=== PATIENT | female | born 1975 | race Caucasian/White ===

== ENCOUNTER 2016-11-14 23:07 | Emergency (ER) | payer MEDICARE | END 2016-11-15 00:41 | disposition home or self-care (01) | LOC: ED 23:07 | DX: S00.83XA Contusion of other part of head, initial encounter (principal); Y04.0XXA Assault by unarmed brawl or fight, initial encounter; T74.11XA Adult physical abuse, confirmed, initial encounter; J32.0 Chronic maxillary sinusitis | CPT/HCPCS: J1885 ==

== ENCOUNTER 2021-10-11 14:20 | Emergency (ER) | payer MEDICARE ==
[~2021-10-11] VITALS: Ht 160 cm; Wt 69.5 kg
[2021-10-11 14:52] LABS: BASO # 0.01 K/mm3 (0.02-0.10); EOS % 4.1 % (1.0-5.0); HEMATOCRIT 42.8 % (37.0-47.0); HEMOGLOBIN 14.5 g/dL (12.5-16.0); LYMPH# 1.84 K/mm3 (1.50-4.00); MEAN CELL VOLUME 96 fl (78-100); MEAN CORPUSCULAR HEMOGLOBIN 32 pg (27-31); MEAN CORPUSCULAR HGB CONC 34 g/dL (33-37); MONO # 0.57 K/mm3 (0.20-0.80); NEU # 2.23 K/mm3 (1.40-6.50); PLATELET COUNT 203 K/mm3 (130-400); RED BLOOD COUNT 4.48 M/mm3 (4.10-5.30); WHITE BLOOD COUNT 4.9 K/mm3 (4.8-10.8)
[2021-10-11 14:59] LABS: ALBUMIN 4.3 g/dL (3.5-5.0); POTASSIUM 3.8 mmol/L (3.5-5.1)
[2021-10-11 15:01] LABS: CALCIUM 9.4 mg/dL (8.3-10.5)
[2021-10-11 15:02] LABS: TOTAL PROTEIN 7.7 g/dL (6.4-8.3)
[2021-10-11 15:04] LABS: TOTAL BILIRUBIN 1.1 mg/dL (0.2-1.2)
[2021-10-11 17:25] LABS: URINE APPEARANCE CLEAR; URINE BILIRUBIN NEGATIVE (NEGATIVE); URINE BLOOD NEGATIVE (NEGATIVE); URINE COLOR YELLOW; URINE GLUCOSE NEGATIVE (NEGATIVE); URINE KETONE 2+ (NEGATIVE); URINE LEUKOCYTE ESTERASE 1+ (NEGATIVE); URINE MUCUS PRESENT (NOT PRESENT); URINE NITRATE NEGATIVE (NEGATIVE); URINE PROTEIN(semi-quant) TRACE (NEGATIVE); URINE UROBILINOGEN NORMAL (NORMAL)
[2021-10-11] MEDS ORDERED: CYCLOBENZAPRINE10 M1 PO (17:39)
[2021-10-11 18:01] VITALS: BP 126/84
== END 2021-10-11 18:02 | disposition home or self-care (01) ==
LOC: ED 14:20
PROVIDERS: Physician Assistant
DX: M54.50 Low back pain, unspecified (principal); G89.29 Other chronic pain
CPT/HCPCS: J1885; J2360; J7030